=== PATIENT | female | born 1985 | race African-American/Black ===

== ENCOUNTER 2017-12-30 14:55 | Emergency (ER) | payer OTHER ==
[~2017-12-30] VITALS: Ht 154.9 cm; Wt 60.0 kg
[2017-12-30 15:23] VITALS: BP 113/58
== END 2017-12-30 20:56 | disposition left against medical advice (07) ==
LOC: ER 15:51
DX: Z53.21 Procedure and treatment not carried out due to patient leaving prior to being seen by health care provider (principal)